=== PATIENT | male | born 1960 | race Caucasian/White ===

== ENCOUNTER 2024-07-24 14:12 | Emergency (ER) | payer OTHER, SELFPAY ==
--- NOTE | ~2024-07-24 | XR_ITS ---
EXAMINATION: XR chest 2V DATE: 07/24/2024 15:57 INDICATION: Dizziness. TECHNIQUE: Frontal and lateral views of the chest were obtained. COMPARISON: None. FINDINGS: There is no pneumonia, pleural effusion, or pneumothorax. The heart size is normal. IMPRESSION: 1. No acute cardiopulmonary disease. Reviewed, dictated and finalized at location A. ORATE TAX MANAGER
--- NOTE | ~2024-07-24 | CT_ITS ---
EXAMINATION: CT brain wo con DATE: 07/24/2024 16:01 INDICATION: Dizziness. TECHNIQUE: Computed tomography (CT) of the head was performed without intravenous contrast. The mA wa s adjusted according to patient size. Iterative reconstruction technique was employed. The dose-lengt h product was 681.00 mGy-cm. COMPARISON: None FINDINGS: There are scattered areas of low attenuation in the cerebral white matter, which is within normal limits for the patient's age. There is no intracranial hemorrhage, acute infarction, or abnorm al intracranial mass lesion. The ventricles are normal in size. There is mild mucosal thickening in t he paranasal sinuses. The orbits are normal. The mastoid air cells are normal. IMPRESSION: 1. Normal aging brain. Reviewed, dictated and finalized at location A. RANCE CLAIM APPROVER IMPRESSION: 1. Normal aging brain.
[2024-07-24 14:12] VITALS: BP 177/85; PULSE 85; RESP 16; TEMP 36.2; O2SAT 96
--- NOTE | 2024-07-24 14:16 | ECG_ITS ---
Test Date: 2024-07-24 14:21:48 Measurements Intervals [place] Rate: 85 P: 83 NE: 180 QRS: 76 QRSD: 110 T: 62 QT: 353 QTc: 420 Interpretive Statements SINUS RHYTHM INCOMPLETE RIGHT BUNDLE BRANCH BLOCK BASELINE ARTIFACT- I, AVR, AVL, V1, V3 BORDERLINE ECG No previous ECG available for comparison Electronically Signed On 07-24-2024 15:37:03 TURBINE ATTENDANT by Tee Mijares D.O.
--- NOTE | 2024-07-24 15:42 | ED_ITS ---
HPI - Dizziness General Chief Complaint: Nausea/Vomiting/Diarrhea Stated Complaint: dizzines Time Seen by Provider: 07/24/24 15:42 Focused HPI: This is a 64 year old male that presents to the ER for dizziness. Ongoing since 10 this morning. Reports he feels lightheaded and like his head is spinning. Reports similar symptoms 6 months ago. No recent injuries or trauma. Reports he had just woke up from a nap when his symptoms started. Reports history of hypertension. He has been compliant with his medications. GENERAL: Well-appearing, well-nourished, and in no acute distress. HEAD: Normocephalic, atraumatic. CHEST: Clear to auscultation. ?No respiratory distress. HEART: Regular rate and rhythm.? NEURO: ?Alert and oriented x3. Patient screened in triage and initial orders placed.? ?Additional care and disposition to be based upon?diagnostic testing and treatment. Course Vital Signs Vital signs: Vital Signs Temperature 97.2 F L 07/24/24 14:12 Pulse Rate 85 07/24/24 14:12 Respiratory Rate 16 07/24/24 14:12 Blood Pressure 177/85 H 07/24/24 14:12 Pulse Oximetry 96 07/24/24 14:12 Temperature 97.2 F L 07/24/24 14:12 Pulse Rate 85 07/24/24 14:12 Respiratory Rate 16 07/24/24 14:12 Blood Pressure 177/85 H 07/24/24 14:12 Pulse Oximetry 96 07/24/24 14:12 Discharge Plan Discharge Patient Language: Malagasy Follow-up/Referrals: PHYSICIAN,LIBRARY TECHNOLOGY INSTRUCTOR [Primary Care Provider] -
[2024-07-24 16:39] LABS: Basophils Percent Auto 0.1 % (0.2-1.2); Eosinophils Percent Auto 0.1 % (0-4.4); Hematocrit 31.6 % (42.0-52.0); Hemoglobin 10.4 g/dL (14.0-18.0); Immature Granulocyte Absolute 0.03 K/mm3 (0.00-0.031); Immature Granulocyte Percent A 0.4 % (0-0.5); Lymphocytes Absolute Auto 0.44 K/mm3 (0.9-3.2); Lymphocytes Percent Auto 5.9 % (18.3-44.2); Mean Corpuscular HGB Conc 32.9 g/dl (32-36); Mean Corpuscular Hemoglobin 28.5 pg (26-34); Mean Corpuscular Volume 86.6 fl (80-100); Mean Platelet Volume 9.8 fl (7.4-10.4); Monocytes Absolute Auto 0.1 K/mm3 (0.1-0.6); Monocytes Percent Auto 1.6 % (2.6-8.5); Neutrophils Absolute Auto 6.8 K/mm3 (1.3-6.7); Neutrophils Percent Auto 91.9 % (45.5-73.1); Platelet Count Result 202 k/mm3 (150-375); Red Blood Count 3.65 M/mm3 (4.6-6.20); Red Cell Distribution Width 13.9 % (11.5-14.5); White Blood Count 7.4 K/mm3 (4.5-10.0)
[2024-07-24 16:50] LABS: Alanine Aminotransferase 18 U/L (6-50); Albumin Level 3.9 g/dL (3.5-5.1); Alkaline Phosphatase 53 U/L (38-126); Anion Gap 10 mmol/L (4-12); Aspartate Amino Transferase 20 U/L (17-59); Bilirubin,Total 0.7 mg/dL (0.2-1.3); Blood Urea Nitrogen 46 mg/dL (9-20); Calcium 8.9 mg/dL (8.4-10.2); Carbon Dioxide 23 mmol/L (22-30); Chloride 103 mmol/L (98-107); Estimated CRCL calculation 38 ml/min; Estimated Glomerular Filt Rate 44; Glucose 136 mg/dL (65-110); Sodium 136 mmol/L (137-145)
[2024-07-24 17:53] VITALS: BP 153/76; PULSE 72; RESP 16; O2SAT 97
[2024-07-24] MEDS: MECLIZINE HCL 25 MG TABLET PO (17:53)
[2024-07-24] MEDS: Please add drug allergy info to patient profile. 1 EACH XX (17:53)
[2024-07-24] MEDS: SODIUM CHLORIDE 0.9% IV 1,000 ML 999 ML IV CONT (17:53)
[2024-07-24 18:02] VITALS: PULSE 82
--- NOTE | 2024-07-24 18:03 | ED_ITS ---
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 PATIENT IS TELLING ME THAT HE GOT UP THIS MORNING FROM BED AND EVERYTHING WAS SPINNING, ASSOCIATED WITH NAUSEA AND VOMITING.. THE ABOVE SYMPTOMS WORSE WITH ANY MOVEMENT, GETS BETTER LITTLE WHEN HE LAYING DOWN STILL. PATIENT HAD SIMILAR SYMPTOMS 6 MONTHS AGO AND WAS DIAGNOSED OF BENIGN POSITIONAL VERTIGO AND WAS DISCHARGED ON ZOFRAN AND ANTIVERT AT THAT TIME. HE DENIES ANY FEVER, CHILLS, CHEST PAIN, SHORTNESS OF BREATH, HEADACHE OR FOCAL NEURO DEFICIT. Related Data Allergies Allergy/AdvReac Type Severity Reaction Status Date / Time No Known Allergies Allergy Verified 07/24/24 17:52 Review of Systems 2 Review of Systems: All systems reviewed & are unremarkable except as noted in HPI and below Exam 2 Narrative: GENERAL APPEARANCE: WELL-DEVELOPED, WELL-NOURISHED SKIN: NORMAL COLOR HEAD: NORMOCEPHALIC, NONTRAUMATIC EYES: CLEAR CONJUNCTIVA ENT: OROPHARYNX NORMAL, EARS NORMAL, NOSE NORMAL NECK: SUPPLE, NONTENDER CHEST AND RESPIRATORY: AIRWAY PATENT, NO RESPIRATORY DISTRESS, NO ACCESSORY MUSCLE USE HEART: REGULAR RATE/RHYTHM ABDOMEN: SOFT, NONTENDER, NO ORGANOMEGALY, QUIET BOWEL SOUNDS VASCULAR: NORMAL PERIPHERAL PULSES, NORMAL CAPILLARY REFILL. MUSCULOSKELETAL: NORMAL RANGE OF MOTION, NONTENDER BACK NEUROLOGIC: ALERT AND ORIENTED ?3, POLYETHYLENE COMBINER IS NORMAL TESTED, NO GROSS MOTOR DEFICIT Course Vital Signs Vital signs: Vital Signs Temperature 36.2 C L 07/24/24 14:12 Pulse Rate 85 07/24/24 14:12 Respiratory Rate 16 07/24/24 14:12 Blood Pressure 177/85 H 07/24/24 14:12 Pulse Oximetry 96 07/24/24 14:12 Temperature 36.2 C L 07/24/24 14:12 Pulse Rate 82 07/24/24 18:02 Respiratory Rate 16 07/24/24 17:53 Blood Pressure 153/76 H 07/24/24 17:53 Pulse Oximetry 97 07/24/24 17:53 MDM - Dizziness MDM Narrative Medical decision making narrative: DIFFERENTIAL DIAGNOSIS BENIGN POSITIONAL VERTIGO, CVA, ELECTROLYTE IMBALANCE, DEHYDRATION BLOOD WORKUP TODAY SHOWED CREATININE OF 1.5 CT HEAD WITHOUT CONTRAST SHOWED NO ACUTE ABNORMALITIES CHEST X-RAY SHOWED NO ACUTE ABNORMALITY PATIENT SYMPTOMS RESOLVED ON ANTIVERT, ZOFRAN AND VALIUM. DISCHARGED ON ZOFRAN ANTIVERT AND VALIUM AND 2 DAYS OF WORK TO MAKE SURE THAT THIS SYMPTOM WILL NOT COME BACK WHILE DRIVING HIS TRUCK Differential Diagnosis Differential diagnosis: Likely other ( ABOVE) Medical Records Attestation: I reviewed the patient's medical records. Lab Data Attestation: I reviewed the patient's lab results. 07/24/24 16:32 07/24/24 16:32 Labs: Lab Results 07/24/24 Range/Units 16:32 WBC 7.4 (4.5-10.0) K/mm3 RBC 3.65 L (4.6-6.20) M/mm3 Hgb 10.4 L (14.0-18.0) g/dL Hct 31.6 L (42.0-52.0) % MCV 86.6 (80-100) fl MCH 28.5 (26-34) pg MCHC 32.9 (32-36) g/dl RDW 13.9 (11.5-14.5) % Plt Count 202 (150-375) k/mm3 MPV 9.8 (7.4-10.4) fl Immature Gran % (Auto) 0.4 (0-0.5) % Neut % (Auto) 91.9 H (45.5-73.1) % Lymph % (Auto) 5.9 L (18.3-44.2) % [place] % (Auto) 1.6 L (2.6-8.5) % Eos % (Auto) 0.1 (0-4.4) % Baso % (Auto) 0.1 L (0.2-1.2) % Lymph # (Auto) 0.44 L (0.9-3.2) K/mm3 [place] # (Auto) 0.1 (0.1-0.6) K/mm3 Eos # (Auto) 0.0 (0-0.3) K/mm3 Baso # (Auto) 0.0 (0.0-0.1) K/mm3 Abs Immat Gran (auto) 0.03 (0.00-0.031) K/mm3 Absolute Neuts (auto) 6.8 H (1.3-6.7) K/mm3 Absolute Nucleated RBC 0.000 (0.0-0.012) K/mm3 Nucleated RBC % 0.0 (0.0-0.2) % Sodium 136 L (137-145) mmol/L Potassium 5.0 (3.4-5.0) mmol/L Chloride 103 (98-107) mmol/L Carbon Dioxide 23 (22-30) mmol/L Anion Gap 10 (4-12) mmol/L BUN 46 H (9-20) mg/dL Creatinine 1.59 H (0.7-1.3) mg/dL Estim Creat Clear Calc 38 ml/min Estimated GFR 44 L (59 - ) Glucose 136 H (65-110) mg/dL Calcium 8.9 (8.4-10.2) mg/dL Total Bilirubin 0.7 (0.2-1.3) mg/dL AST 20 (17-59) U/L ALT 18 (6-50) U/L Alkaline Phosphatase 53 (38-126) U/L Total Protein 7.0 (6.3-8.2) g/dL Albumin 3.9 (3.5-5.1) g/dL Imaging Data Radiologist's impression: Impressions Chest X-Ray 07/24/24 16:04 IMPRESSION: 1. No acute cardiopulmonary disease. Head CT 07/24/24 16:07 IMPRESSION: 1. Normal aging brain. ECG Data EKG #1: Attestation: I personally reviewed and interpreted this ECG as follows: ECG completion date: 07/24/24 Interpretation: NORMAL SINUS RHYTHM AT 85 BEATS PER MINUTE, INCOMPLETE RIGHT BUNDLE-BRANCH BLOCK, BASELINE ARTIFACT LEAD 1, AVR, AVL, V1 AND V3 BORDERLINE EKG, NO PREVIOUS EKG AVAILABLE FOR COMPARISON Critical Care Time Critical Care Time Critical Care Time: No Discharge Plan Discharge Clinical Impression: Benign paroxysmal positional vertigo Patient Disposition: Home, Self-Care Condition: Improved Instructions: Benign Paroxysmal Positional Vertigo (ED) Additional Instructions: RETURN IF SYMPTOMS ARE WORSENING , CALL YOUR FAMILY PHYSICIAN FOR APPOINTMENT, TAKE TYLENOL NEEDED FOR ACHES AND PAIN, CONTINUE HOME MEDICATIONS. AVOID ANY PHYSICAL ACTIVITY OR DRIVING IF HE HAVE ANY DIZZINESS. Patient Language: Latvian Prescriptions: New meclizine [Antivert] 25 mg tablet,chewable 25 mg PO TID Qty: 20 0RF ondansetron HCl 4 mg tablet 4 mg PO Q4H Qty: 10 0RF Rx Instructions: 1st dose 1-2 hr before radiation diazepam [Valium] 5 mg tablet 5 mg PO TID PRN (Reason: anxiety) Qty: 9 0RF Follow-up/Referrals: PHYSICIAN,METAL CEILING HANGER [Primary Care Provider] - Stand Alone Forms: Work/School Release IP
--- OUTSIDE RECORDS SUMMARY | 2024-07-24 18:09 | XMS_ITS | Clinical Summary ---
Author Organization [facility] Address [address] [place] [address] Phone Care Team Providers Care Pta Name Role Phone Unavailable Primary Care Provider Unavailabl e Allergies Active Allergy Reactions Criticality Noted Date Comments Penicillins Unknown 05/13/2022 Medications No known medications Social History Tobacco Use Types Packs/Day Years Used Date Smoking Tobacco: Every Day Cigarettes Tobacco Cessation:Ready to Q uit: Not Asked; Counseling Given: Not Answered Sex and Gender Information Value Date Recorded Sex Assigned at Not on file Legal Sex Male 12:12 PM CLERK SECRETARY Gender Identity Not on file Sexual Orientation Not on file Last Filed Vital Signs Vital Sign Reading Time Taken Comments Blood Pressure 165/85 05/13/2022 3:00 PM CLERK SECRETARY Pulse 98 05/13/2022 3:15 PM CLERK SECRETARY Temperature 36.6 C (97.9 F) 05/13/2022 12:15 PM CLERK SECRETARY Respiratory Rate 24 05/13/2022 3:15 PM CLERK SECRETARY Oxygen Saturation 95% 05/13/2022 3:15 PM CLERK SECRETARY Inhaled Oxygen Concentration - - Weight 63.5 kg (140 lb) 05/13/2022 12:15 PM CLERK SECRETARY Height 175.3 cm (5' 9 ) 05/13/2022 12:15 PM CLERK SECRETARY Body Mass Index 20.67 05/13/2022 12:15 PM CLERK SECRETARY Plan of Treatment Health Maintenance Due Date Last Done Comments PNEUMOCOCCAL VACCINE 65+ YEA RS (1 of 2 - PCV) 1978 FIT-DNA Q 3 years 2004 FIT/FOBT Q 1 year 2004 Flex Sig/CT Colonography Q 5 years 2004 ZOSTER VACCINE (1 of 2) 2009 COLORECTAL SCREENING 02/22/2015 02/22/2005, 06/05/19 02 Colorectal Cancer Screening 02/22/2015 RSV VACCINE (60+ or ) (1 - Risk 60-74 years 1-dose series) 2019 DTAP/TDAP/TD VACCINES (5 - T d or Tdap) 03/05/2021 03/05/2011, 06/05/2009, 12/04/2007, Additional history exists INFLUENZA VACCINE (#1) 2024 Insurance [facility] [employer]
[2024-07-24] MEDS: diazePAM (*CRX) 5 MG TABLET PO (18:32)
[2024-07-24 18:34] VITALS: BP 172/90; PULSE 77; RESP 22; O2SAT 97
== END 2024-07-24 18:45 | disposition home or self-care (01) ==
PROVIDERS: Physician Assistant; Emergency Provider Emergency Medicine
DX: H81.10 Benign paroxysmal vertigo, unspecified ear (principal); I45.10 Unspecified right bundle-branch block
CPT/HCPCS: 36415; 70450; 71046; 80053; 85025; 93005; 96360; 99284; A9270; J7030

== ENCOUNTER 2025-04-20 00:34 | Emergency (ER) | payer OTHER, SELFPAY ==
[2025-04-20] VITALS (12 sets, daily range): BP systolic 179–204; BP diastolic 84–95; PULSE 88–110; RESP 18–24; TEMP 36.6; O2SAT 96–100
--- NOTE | ~2025-04-20 | XR_ITS ---
Examination: XR chest 1V portable Clinical History: Dyspnea Comparison: 07/24/2024 Technique: Portable AP Findings: Heart size normal. Lungs clear. No acute bony abnormality. IMPRESSION: 1. No acute cardiopulmonary findings given portable technique. Reviewed, dictated and finalized at location R. TRIC RANGE ASSEMBLER
--- NOTE | 2025-04-20 01:01 | PC.NURSE ---
Pt arrived to ED room 14 by EMS. This RN went to monorail hooker pt to monitor and pt states you don't need to hook me up I am leaving as soon as the EMS oskar walks out. hoist mechanic notified and she verbally states pt has to stay here due to the SI comments pt made with the PD. pt is denying he made SI remarks to the PD. This RN kept telling pt he can't leave for his safety and the comment he had been making. pt states he has nothing to go back to and has no home anymore. As soon as I leave I am gone. Pt kept making remarks to his recent life style changes and kept stating how he has nothing worth living for. Pt is now denying saying he never said anything. Pt states you guys misheard me. when asked columbia scale pt states he does not want to harm himself after having made several SI comments to EMS and RN in the roberto. Pt had attempted to keep leaving the room, ED security was notified and at bedside at this time. Pt is refusing to have any work up done at this time. Pt is being uncooperative. MD and hot metal charger notified.
--- NOTE | 2025-04-20 01:46 | PC.NURSE ---
RN attempted to get pt to get blood and urine sample pt is refusing to give anything at this time. Pt states no other hospital I have been to does this. RN explained the process and importance of each part of the work up and how it is for pt safety. pt states okay see you in the morning, I will wait. RN states the longer pt refuses the longer it will take. Pt states he does not care and will sleep until I can leave.
[2025-04-20] MEDS: IPRATROPIUM 0.5 MG/ALBUTEROL SULFATE 2.5 MG (BASE) AMPUL.NEB 3 ML 12 ML INHALATION ×2 (02:20→05:04)
--- NOTE | 2025-04-20 02:21 | PC.NURSE ---
This RN explained to pt that there are orders by the doctor to help with his breathing. Pt is refusing IV and does not want magnesium or fluids. Pt also provided urine sample in urinal but dumped it down the drain per ED security. electron beam machine welder setter and MD notified.
--- NOTE | 2025-04-20 04:19 | PC.NURSE ---
This RN went into pt room to ask for blood work and urine sample. Pt asks again what it is needed for. This RN explained the process all over again of crisis, and having to medically clear pt. MD Navarrete and Lissette notified. MD navarrete verbally states to chemically restrain the pt to get blood work.
[2025-04-20] MEDS: MAGNESIUM SULF 2 GM/WATER 50ML 2 GM/50 ML BAG IVPB (04:30)
[2025-04-20] MEDS: SODIUM CHLORIDE 0.9% IV 1,000 ML 999 ML IV CONT (04:30)
[2025-04-20 04:38] LABS: Add Urine Microscopic? NO; Appearance Urine Clear (Clear); Glucose Urine UA Negative (Negative); Leukocyte Esterase Ur Negative LEU/UL (Negative); Nitrate Urine Negative (Negative); Specific Grav Ur 1.006 (1.001-1.035)
[2025-04-20 04:42] LABS: Hematocrit 31.9 % (42.0-52.0); Hemoglobin 10.6 g/dL (14.0-18.0); Immature Granulocyte Percent A 0.3 % (0-0.5); Lymphocytes Absolute Auto 1.52 K/mm3 (0.9-3.2); Mean Corpuscular HGB Conc 33.2 g/dl (32-36); Mean Corpuscular Hemoglobin 28.6 pg (26-34); Mean Corpuscular Volume 86.0 fl (80-100); Nucleated Red Blood Cells Absolute Auto 0.000 K/mm3 (0.0-0.012); Nucleated Red Blood Cells Perc 0.0 % (0.0-0.2); Platelet Count Result 195 k/mm3 (150-375); Red Blood Count 3.71 M/mm3 (4.6-6.20); White Blood Count 6.4 K/mm3 (4.5-10.0)
[2025-04-20] MEDS: dexAMETHasone SOD PHOS INJ 10 MG/ML 1 ML VIAL IV PUSH (04:56)
[2025-04-20 04:57] LABS: Alanine Aminotransferase 17 U/L (6-50); Albumin Level 4.1 g/dL (3.5-5.1); Alkaline Phosphatase 59 U/L (38-126); Anion Gap 9 mmol/L (4-12); Aspartate Amino Transferase 26 U/L (17-59); Bilirubin,Total 0.4 mg/dL (0.2-1.3); Blood Urea Nitrogen 30 mg/dL (9-20); Calcium 8.7 mg/dL (8.4-10.2); Carbon Dioxide 22 mmol/L (22-30); Chloride 106 mmol/L (98-107); Estimated CRCL calculation 33 ml/min; Estimated Glomerular Filt Rate 35; Glucose 101 mg/dL (65-110); Potassium 3.8 mmol/L (3.4-5.0); Sodium 137 mmol/L (137-145); Total Protein 6.8 g/dL (6.3-8.2)
[2025-04-20 05:03] LABS: Cannabinoid Screen Urine Negative (Negative)
[2025-04-20 05:08] LABS: NT Pro B Type Natriuretic Pept 1090 pg/mL (19.9-100)
--- NOTE | 2025-04-20 05:10 | PC.NURSE ---
pt never was chemically restrained. Pt was cooperative with ED viscose cellar charge hand.
[2025-04-20 05:13] LABS: Influenza A QL RT-PCR Negative (Negative); Influenza B QL RT-PCR Negative (Negative); RSV RNA, RT-PCR Negative (Negative); SARS-CoV-2 RNA PCR Negative (Negative)
[2025-04-20 05:30] LABS: Thyroid Stimulating Hormone Reflex 3.300 uIU/mL (0.465-4.68)
--- NOTE | 2025-04-20 05:34 | PCRCNOTE ---
Pt ordered breathing treatments twice. Takes tx's on/off and then proceeds to refuse. Patient is argumentative. RN, and security aware.
[2025-04-20] MEDS: LACTATED RINGERS 1,000 ML 150 ML IV CONT (05:58)
--- NOTE | 2025-04-20 06:18 | ED.GENADULT ---
HPI - General Adult General Chief complaint: Psychiatric Symptoms Stated complaint: SOB Time Seen by Provider: 04/20/25 00:58 History of Present Illness HPI narrative: This is a 65-year-old male presenting for suicidal ideation. Patient got into an altercation with the police. While he was arguing with them he told them multiple times to shoot him because he wanted to . While they were trying to arrest him he developed shortness of breath and they brought him to the hospital to be evaluated For dyspnea and shortness of breath. Patient is confrontational during the interview and does not want to contribute in any way. He tells multiple staff members that he wanted to kill himself. He is not speaking to the MD. Related Data Allergies Allergy/AdvReac Type Severity Reaction Status Date / Time No Known Allergies Allergy Verified 07/24/24 17:52 [facility] Social History Social History Substance use type: does not use Exam Narrative: APPEARANCE: No apparent distress. smells of alcohol Head: atraumatic. EYES: EOMI, NOSE: Atraumatic NECK: Trachea midline RESPIRATORY: wheezing, tight lungs, speaking in full sentences CARDIOVASCULAR: RRR, ABDOMINAL: Non-distended MUSCULOSKELETAl: No obvious deformities NEURO: Alert. Moving 4/4 extremities SKIN:: Warm, dry. Normal color PSYCHIATRIC: Normal affect Course Vital Signs Vital signs: Vital Signs Temperature 98 F 04/20/25 00:31 Pulse Rate 97 04/20/25 00:31 Respiratory Rate 18 04/20/25 00:31 Blood Pressure 188/86 H 04/20/25 00:31 Pulse Oximetry 97 04/20/25 00:31 Oxygen Delivery Room Air 04/20/25 00:31 Temperature 98 F 04/20/25 00:31 Pulse Rate 110 H 04/20/25 09:36 Respiratory Rate 24 H 04/20/25 09:36 Blood Pressure 204/95 H 04/20/25 09:36 Pulse Oximetry 100 04/20/25 09:36 Oxygen Delivery Room Air 04/20/25 03:18 Medical Decision Making MDM Narrative Medical decision making narrative: -Course: 65-year-old male with COPD presenting for suicidal ideation and difficulty breathing. Patient does have some wheezing on exam is given a DuoNeb treatment dexamethasone and magnesium. His breathing only appears to really trouble him when he gets worked up and starts yelling and fighting. Patient had to be watched almost continuously by security due to his generally disruptive behavior. Eventually we convince the patient to let us give him medications and get blood work so that he could be cleared for psychiatric evaluation. He is now medically cleared to be evaluated by crisis. -DDX includes but is not limited to: SI depression alcohol intoxication COPD exacerbation Vital Signs Vital Signs: Vital Signs Temperature 98 F 04/20/25 00:31 Pulse Rate 97 04/20/25 00:31 Respiratory Rate 18 04/20/25 00:31 Blood Pressure 188/86 H 04/20/25 00:31 Pulse Oximetry 97 04/20/25 00:31 Oxygen Delivery Room Air 04/20/25 00:31 Temperature 98 F 04/20/25 00:31 Pulse Rate 110 H 04/20/25 09:36 Respiratory Rate 24 H 04/20/25 09:36 Blood Pressure 204/95 H 04/20/25 09:36 Pulse Oximetry 100 04/20/25 09:36 Oxygen Delivery Room Air 04/20/25 03:18 Lab Data 04/20/25 04:29 04/20/25 04:29 Labs: Lab Results 04/20/25 04/20/25 Range/Units 04:29 06:51 WBC 6.4 (4.5-10.0) K/mm3 RBC 3.71 L (4.6-6.20) M/mm3 Hgb 10.6 L (14.0-18.0) g/dL Hct 31.9 L (42.0-52.0) % MCV 86.0 (80-100) fl MCH 28.6 (26-34) pg MCHC 33.2 (32-36) g/dl RDW 13.7 (11.5-14.5) % Plt Count 195 (150-375) k/mm3 MPV 9.6 (7.4-10.4) fl Immature Gran % (Auto) 0.3 (0-0.5) % Neut % (Auto) 59.8 (45.5-73.1) % Lymph % (Auto) 23.9 (18.3-44.2) % Heard % (Auto) 9.3 H (2.6-8.5) % Eos % (Auto) 5.8 H (0-4.4) % Baso % (Auto) 0.9 (0.2-1.2) % Lymph # (Auto) 1.52 (0.9-3.2) K/mm3 [place]ard # (Auto) 0.6 (0.1-0.6) K/mm3 Eos # (Auto) 0.4 H (0-0.3) K/mm3 Baso # (Auto) 0.1 (0.0-0.1) K/mm3 Abs Immat Gran (auto) 0.02 (0.00-0.031) K/mm3 Absolute Neuts (auto) 3.8 (1.3-6.7) K/mm3 Absolute Nucleated RBC 0.000 (0.0-0.012) K/mm3 Nucleated RBC % 0.0 (0.0-0.2) % Sodium 137 (137-145) mmol/L Potassium 3.8 (3.4-5.0) mmol/L Chloride 106 (98-107) mmol/L Carbon Dioxide 22 (22-30) mmol/L Anion Gap 9 (4-12) mmol/L BUN 30 H D (9-20) mg/dL Creatinine 1.92 H (0.7-1.3) mg/dL Estim Creat Clear Calc 33 ml/min Estimated GFR 35 L (59 - ) Glucose 101 (65-110) mg/dL Calcium 8.7 (8.4-10.2) mg/dL Total Bilirubin 0.4 (0.2-1.3) mg/dL AST 26 (17-59) U/L ALT 17 (6-50) U/L Alkaline Phosphatase 59 (38-126) U/L NT-Pro-B Natriuret Pep 1090 H (19.9-100) pg/mL Total Protein 6.8 (6.3-8.2) g/dL Albumin 4.1 (3.5-5.1) g/dL TSH (Reflex) 3.300 (0.465-4.68) uIU/mL Urine Color Yellow (Yellow) Urine Appearance Clear (Clear) Urine pH 5.5 (5.0-9.0) Ur Specific [place] 1.006 (1.001-1.035) Urine Protein Negative (Negative) mg/dL Urine Glucose (UA) Negative (Negative) mg/dL Urine Ketones Negative (Negative) mg/dL Ur Blood (Man) Negative (Negative) Urine Nitrate Negative (Negative) Urine Bilirubin Negative (Negative) Urine Urobilinogen 0.2 (<2.0) mg/dL Leukocyte Esterase Rfl Negative (Negative) ALFREDO/UL Urine Opiates Screen Negative (Negative) Urine Methadone Screen Negative (Negative) Ur Barbiturates Screen Negative (Negative) Ur Phencyclidine Scrn Negative (Negative) Ur Amphetamine Screen Negative (Negative) U Benzodiazepines Scrn Negative (Negative) Urine Cocaine Screen Negative (Negative) U Cannabinoids Screen Negative (Negative) Ethyl Alcohol 95 50 (<10) mg/dL Influenza A (RT-PCR) Negative (Negative) Influenza B (RT-PCR) Negative (Negative) RSV (RT-PCR) Negative (Negative) SARS-CoV-2 RNA (RT-PCR) Negative (Negative) Discharge Plan Discharge Clinical Impression: Alcohol intoxication Patient Disposition: Home Condition: Stable Instructions: Antibiotic Form, COPD (Chronic Obstructive Pulmonary Disease) (ED), Abuse of Alcohol (ED) Additional Instructions: Please follow safety plan as discussed with crisis team. Follow-up with your PCP in the next week for re-evaluation. Return to the ED for any new or worsening symptoms. Patient Language: Uzbek Prescriptions: No Action meclizine [Antivert] 25 mg tablet,chewable 25 mg PO TID Qty: 20 0RF ondansetron HCl 4 mg tablet 4 mg PO Q4H Qty: 10 0RF Rx Instructions: 1st dose 1-2 hr before radiation diazepam [Valium] 5 mg tablet 5 mg PO TID PRN (Reason: anxiety) Qty: 9 0RF Follow-up/Referrals: PHYSICIAN,GENETICIST [Primary Care Provider, Internal Medicine] Jaime Rose MD [Physician, Family Practice] Stand Alone Forms: Work/School Release IP
--- NOTE | 2025-04-20 07:15 | PC.NURSE ---
Assumed care of pt. Pt resting with sitter. No distress noted
--- NOTE | 2025-04-20 07:41 | PC.NURSE ---
Pt states he feels SOB. Pt speaks in complete sentences but does pause on occasion to take a deep breath. Pt informed that his B/P is high. States he will refuse medications and admissions. That he will sign out AMA if needed. Informed that crisis will be in to talk with him soon
--- NOTE | 2025-04-20 08:38 | PC.NURSE ---
Pt states he is SOB. Having difficulty talking. Requesting breathing treatment. Dr Dainel notified with orders received. Crisis at bedside
[2025-04-20] MEDS: IPRATROPIUM 0.5 MG/ALBUTEROL SULFATE 2.5 MG (BASE) AMPUL.NEB 3 ML INHALATION (08:56)
--- NOTE | 2025-04-20 09:33 | PC.NURSE ---
Pt aware that his b/p is high. Pt refuses b/p meds while here in the hospital. States he will take his home dose of losartan when he gets to his truck. Pt informed to continue his meds when he gets home and to return for sxs of a stroke or increased SOB. Michele from Care coordination in talking to pt. Michele gave pt bus pass and contacted [place] station to find pt's truck. Security escorted pt out to [facility] area due to pt's SOB
== END 2025-04-20 09:38 | disposition home or self-care (01) ==
PROVIDERS: Emergency Provider Emergency Medicine
DX: F10.129 Alcohol abuse with intoxication, unspecified (principal); Y90.4 Blood alcohol level of 80-99 mg/100 ml; J44.9 Chronic obstructive pulmonary disease, unspecified; Z20.822 Contact with and (suspected) exposure to COVID-19
CPT/HCPCS: 36415; 71045; 80053; 80307; 81003; 82077; 83880; 84443; 85025; 87637; 94640; 96361; 96365; 96366; 96367; 96375; 99283; 99284; 99285; J1100; J3475; J7030; J7120